=== PATIENT | female | born 1940 | race Caucasian/White ===

== ENCOUNTER 2020-11-20 22:11 | Inpatient (IN) | payer MEDICARE ==
[~2020-11-20] VITALS: Ht 157.4 cm; Wt 63.5 kg
[~2020-11-20 22:11] MED LIST: ATORVASTATIN CA40 M1 PO; BUSPIRONE HCL15 MG PO; DONEPEZIL HYDRO10 M1 PO; MEMANTINE HCL10 MG PO; MYRBETRIQ50 M1 PO; NIFEDIPINE ER30 M1 PO; SERTRALINE HYD100 MG PO
[2020-11-20 23:35] VITALS: BP 116/49
[2020-11-21 06:52] LABS: BASO # 0.1 10*3/uL (0.0-0.1); BASO % 0.8 % (0.0-1.0); EOS # 0.2 10*3/uL (0.0-0.4); EOS % 3.6 % (1.0-4.0); HEMATOCRIT 38.1 % (37.0-47.0); LYMPH # 1.7 10*3/uL (1.3-4.4); LYMPH % 25.9 % (27.0-41.0); MEAN CELL VOLUME 98.4 fl (81.0-99.0); MEAN CORPUSCULAR HGB 31.3 pg (27.0-31.0); MEAN CORPUSCULAR HGB CONC 31.8 g/dl (33.0-37.0); MEAN PLATELET VOLUME 9.3 fl (9.6-12.3); MONO # 0.5 10*3/uL (0.1-1.0); MONO % 7.9 % (3.0-9.0); NEUT # 3.9 10*3/uL (2.3-7.9); NEUT % 61.6 % (47.0-73.0); PLATELET COUNT AUTOMATED 211 10*3/uL (130-400); RED BLOOD COUNT 3.87 10*6/uL (4.10-5.10); WHITE BLOOD COUNT 6.4 10*3/uL (4.8-10.8)
[2020-11-21 07:19] LABS: ALBUMIN 3.1 gm/dl (3.1-4.5); BUN 11 mg/dl (7-24); CHLORIDE 109 mmol/L (98-107); POTASSIUM 3.6 mmol/L (3.5-5.1); SODIUM 143 mmol/L (136-145)
[2020-11-21 07:32] LABS: ALKALINE PHOSPHATASE 69 U/L (45-117); CHOLESTEROL 148 mg/dL (<200); CREATININE 0.57 mg/dL (0.55-1.02); LDL CHOLESTEROL 62 mg/dL (9-159); SGOT/AST 22 IU/L (3-35); SGPT/ALT 34 U/L (12-78); TOTAL PROTEIN 6.2 gm/dL (6.4-8.2); TRIGLYCERIDES 80 mg/dl (<150)
[2020-11-21 07:47] VITALS: BP 117/79
[2020-11-21 09:06] LABS: VITAMIN D, 25-HYDROXY 42.3 ng/mL (30-100)
[2020-11-21 20:00] VITALS: BP 114/60
[2020-11-22 08:00] VITALS: BP 110/58
[2020-11-22 20:00] VITALS: BP 129/66
[2020-11-23 07:28] VITALS: BP 138/80
[2020-11-23 20:00] VITALS: BP 138/58
[2020-11-24 08:00] VITALS: BP 127/70
[2020-11-24 20:00] VITALS: BP 131/78
[2020-11-25 07:47] VITALS: BP 123/65
[2020-11-25 20:00] VITALS: BP 127/64
[2020-11-26 07:57] VITALS: BP 115/52
[2020-11-26 20:00] VITALS: BP 130/62
[2020-11-27 07:33] VITALS: BP 125/69
[2020-11-27 20:00] VITALS: BP 138/61
[2020-11-28 07:21] VITALS: BP 122/54
[2020-11-28 20:00] VITALS: BP 123/61
[2020-11-29 08:00] VITALS: BP 126/62
[2020-11-29 20:00] VITALS: BP 130/60
[2020-11-30 08:00] VITALS: BP 111/54
[2020-11-30] MEDS ORDERED: RIVASTIGMINE1 EAC2 T (10:05)
[2020-11-30] MEDS ORDERED: MEMANTINE HCL10 MG PO (10:05)
[2020-11-30] MEDS ORDERED: FLUVOXAMINE50 MG PO ×2 (10:05)
== END 2020-11-30 16:46 | disposition home or self-care (01) | DRG 885 ==
LOC: 3N 22:11
PROVIDERS: Registered Nurse; ADMIT Psychiatry & Neurology Psychiatry; ATTEND Psychiatry & Neurology Psychiatry
DX: F33.3 Major depressive disorder, recurrent, severe with psychotic symptoms (principal); F02.81 Dementia in other diseases classified elsewhere, unspecified severity, with behavioral disturbance; F43.21 Adjustment disorder with depressed mood; M41.9 Scoliosis, unspecified; N32.81 Overactive bladder; I10 Essential (primary) hypertension; I73.00 Raynaud's syndrome without gangrene; M19.90 Unspecified osteoarthritis, unspecified site; E78.5 Hyperlipidemia, unspecified; G30.9 Alzheimer's disease, unspecified; Z82.49 Family history of ischemic heart disease and other diseases of the circulatory system; Z79.899 Other long term (current) drug therapy